=== PATIENT | male | born 1960 | race Caucasian/White ===

== ENCOUNTER 2021-04-20 14:44 | Emergency (ER) | payer OTHER, MEDICAID ==
[~2021-04-20] VITALS: Ht 167.6 cm; Wt 102.1 kg
[~2021-04-20 14:44] MED LIST: CLEOCIN HCL150 MG PO
[2021-04-20] MEDS ORDERED: LISINOPRIL10 MG PO (14:54)
[2021-04-20] MEDS ORDERED: LIPITOR10 MG PO (14:54)
[2021-04-20] MEDS ORDERED: ASA81BEC PO (14:55)
[2021-04-20 15:05] LABS: ABSOLUTE BASOPHILS 0.1 thou/uL (0.0-0.2); ABSOLUTE EOSINOPHILS 0.2 thou/uL (0.0-0.7); ABSOLUTE LYMPHOCYTES 1.8 thou/uL (0.8-5.3); ABSOLUTE MONOCYTES 0.6 thou/uL (0.0-1.2); ABSOLUTE NEUTROPHILS 7.6 thou/uL (1.6-8.1); BASOPHILS 0.7 %; EOSINOPHILS 1.5 %; HEMATOCRIT 47.5 % (42.0-52.0); HEMOGLOBIN 16.4 gm/dL (14.0-18.0); LYMPHOCYTES 17.9 %; MCH 30.5 pg (26.0-34.0); MCHC 34.5 g/dL (28.0-37.0); MCV 88.5 fL (80.0-100.0); MONOCYTES 5.9 %; MPV 8.4 fl. (7.2-11.1); NUCLEATED RBCS 0 /100WBC; PLATELET COUNT* 231 thou/uL (150-400); RBC 5.37 mil/uL (4.50-6.00); RDW-CV 13.7 % (10.5-14.5); WBC 10.3 thou/uL (4.0-11.0)
[2021-04-20 15:28] LABS: CALCIUM 9.4 mg/dL (8.5-10.1)
[2021-04-20 15:38] LABS: ALBUMIN 4.1 g/dL (3.4-5.0); MAGNESIUM 1.9 mg/dL (1.8-2.4); TOTAL BILIRUBIN 0.4 mg/dL (<0.1-1.0); TOTAL PROTEIN 8.1 g/dL (6.4-8.2)
[2021-04-20 16:13] VITALS: BP 163/109
--- NOTE | 2021-04-21 09:36 | EKG ---
[place] [address] ELECTROCARDIOGRAM REPORT Name: APARNA ROCK III Room: [facility]#: [id number] Admission: 04/20/21 Attend Phys: Discharge: 04/20/21 Date of : 64 Date of Service: 04/20/21 1450 Report #: [id number] THIS REPORT FOR: //name// [facility] ED Test Date: 2021-04-20 Test Time: 14:50:31 Pat Name: APARNA ROCK Department: Room: Gender: Supervisor Cereal: : 1960 Requested By: Leobardo Maya Order Number: [id number] MD: Nakul Will Measurements Intervals [place] Rate: 93 P: 65 IA: 151 QRS: -34 QRSD: 111 T: 54 QT: 384 QTc: 478 Interpretive Statements Sinus rhythm Probable left atrial enlargement Left axis deviation Abnormal R-wave progression, late transition Borderline prolonged QT interval No previous ECG available for comparison Electronically Signed On 04-21-2021 9:35:43 [employer] by Nakul Will [email or web address] <ELECTRONICALLY SIGNED> By: Nakul Will MD, [facility] 04/21/21 0935 1450 1450 Nakul Will MD, [facility] /EPI
== END 2021-04-20 16:34 | disposition home or self-care (01) ==
LOC: M.ERS 14:44
PROVIDERS: Family Medicine
DX: R07.89 Other chest pain (principal); I10 Essential (primary) hypertension; E78.5 Hyperlipidemia, unspecified; E11.9 Type 2 diabetes mellitus without complications; Z79.899 Other long term (current) drug therapy; Z87.891 Personal history of nicotine dependence; Z88.8 Allergy status to other drugs, medicaments and biological substances